=== PATIENT | female | born 1995 | race Caucasian/White ===

== ENCOUNTER 2019-11-01 16:47 | Emergency (ER) | payer OTHER ==
[~2019-11-01] VITALS: Ht 177.8 cm; Wt 176.9 kg
[2019-11-01] MEDS ORDERED: VENTOLIN HFA18 GM INH (17:08)
[2019-11-01] MEDS ORDERED: SINGULAIR10 MG PO (17:08)
[2019-11-01] MEDS ORDERED: ADVAIR 100-501 EACH INH (17:08)
[2019-11-01] MEDS ORDERED: OMEPRAZOLE20 MG PO (17:09)
[2019-11-01] MEDS ORDERED: LAMICTAL ODT100 MG PO (17:09)
[2019-11-01] MEDS ORDERED: MINIPRESS5 MG PO (17:09)
[2019-11-01] MEDS ORDERED: TRAZODONE HCL150 MG PO (17:10)
[2019-11-01] MEDS ORDERED: VERAPAMIL ER120 MG PO (17:10)
[2019-11-01] MEDS ORDERED: HYDROXYZINE HCL10 MG PO (17:11)
[2019-11-01] MEDS ORDERED: SIMVASTATIN10 MG PO (17:11)
== END 2019-11-01 19:01 | disposition home or self-care (01) ==
LOC: ED 16:47
DX: B34.9 Viral infection, unspecified (principal); J45.909 Unspecified asthma, uncomplicated; F17.200 Nicotine dependence, unspecified, uncomplicated; Z90.89 Acquired absence of other organs; Z79.899 Other long term (current) drug therapy
CPT/HCPCS: 71045; 87502; 94640; 94664; 99283-25